=== PATIENT | male | born 1955 | race Caucasian/White ===

== ENCOUNTER 2020-06-14 07:24 | Day surgery (SDC) | payer BC ==
[2020-06-13 11:44] LABS: BASOPHILS # (AUTO) 0.1 X10'3 (0-0.2); EOSINOPHILS # (AUTO) 0.1 X10'3 (0-0.9); EOSINOPHILS % (AUTO) 1.1 % (0-6); HEMATOCRIT 42.4 % (42.0-52.0); HEMOGLOBIN 15.1 g/dl (14.0-17.9); LYMPHOCYTES # (AUTO) 1.8 X10'3 (1.1-4.8); LYMPHOCYTES % (AUTO) 32.8 % (21-51); MEAN CORPUSCULAR HEMOGLOBIN 31.8 PG (27.0-31.0); MEAN CORPUSCULAR HGB CONC 35.6 g/dL (33.0-36.5); MEAN CORPUSCULAR VOLUME 89.3 FL (78-98); MEAN PLATELET VOLUME 9.3 FL (7.4-10.4); MONOCYTES # (AUTO) 0.5 X10'3 (0-0.9); MONOCYTES % (AUTO) 8.2 % (2-12); NEUTROPHILS # (AUTO) 3.2 X10'3 (1.8-7.7); NEUTROPHILS % (AUTO) 56.9 % (42-75); PLATELET COUNT 179 X10'3 (140-440); RED BLOOD COUNT 4.75 X10'6 (4.70-6.10); WHITE BLOOD COUNT 5.6 X10'3 (4.5-11.0)
[2020-06-13 11:49] LABS: ALBUMIN 4.3 G/DL (3.4-5.0); ANION GAP 11 (8-16); BLOOD UREA NITROGEN 19 MG/DL (7-18); BUN/CREATININE RATIO 22.6 (5.4-32.0); CALCIUM 9.3 MG/DL (8.5-10.1); CHLORIDE 101 MMOL/L (99-107); CREATININE 0.84 MG/DL (0.60-1.10); GLUCOSE 137 MG/DL (70-104); POTASSIUM 3.4 MMOL/L (3.5-5.1); SODIUM 141 MMOL/L (135-145); TOTAL CARBON DIOXIDE 29.2 MMOL/L (24-32); eGFR > 90 ML/MIN
[2020-06-14] VITALS (11 sets, daily range): BP systolic 112–123; BP diastolic 65–74
[~2020-06-14] VITALS: Ht 185.4 cm; Wt 113.5 kg
[2020-06-14] MEDS ORDERED: amiodarone 150mg/dext, iso-os 100 ML IV ONE (07:50)
[2020-06-14] MEDS ORDERED: atropine 0.1mg/ml 10ml syringe IV ONE (07:50)
[2020-06-14] MEDS ORDERED: diphenhydrAMINE 25mg capsule PO ONE (07:50)
[2020-06-14] MEDS ORDERED: LORazepam 0.5 MG tablet PO ONE (07:50)
[2020-06-14] MEDS ORDERED: morphine 10mg/ml inj. IV ONE (07:50)
[2020-06-14] MEDS ORDERED: MIDAZolam 1mg/ml 10ml vial IV ONE (07:50)
[2020-06-14] MEDS ORDERED: OMEP40CA13 PO (08:24)
[2020-06-14] MEDS ORDERED: IRON1TAB24 (08:24)
[2020-06-14] MEDS ORDERED: Iron (08:24)
[2020-06-14] MEDS ORDERED: LORA10CA PO (08:24)
[2020-06-14] MEDS ORDERED: ATOR40TA PO (08:24)
[2020-06-14] MEDS ORDERED: HYDR50TA3 PO (08:24)
[2020-06-14] MEDS ORDERED: MULT-964 PO (08:24)
[2020-06-14] MEDS ORDERED: RIVA20TA PO (08:24)
[2020-06-14] MEDS ORDERED: METF500T PO (08:24)
[2020-06-14] MEDS ORDERED: SOTA80TA73 PO (08:26)
== END 2020-06-14 11:20 | disposition home or self-care (01) ==
LOC: SSTAY O 07:24
PROVIDERS: ATTEND Internal Medicine Cardiovascular Disease
DX: I48.19 Other persistent atrial fibrillation (principal); E78.5 Hyperlipidemia, unspecified; I10 Essential (primary) hypertension; D64.9 Anemia, unspecified; G47.30 Sleep apnea, unspecified; F17.290 Nicotine dependence, other tobacco product, uncomplicated; E66.9 Obesity, unspecified; Z68.35 Body mass index [BMI] 35.0-35.9, adult; Z79.899 Other long term (current) drug therapy; Z98.890 Other specified postprocedural states; Z80.1 Family history of malignant neoplasm of trachea, bronchus and lung; Z83.3 Family history of diabetes mellitus; Z82.49 Family history of ischemic heart disease and other diseases of the circulatory system
CPT/HCPCS: 36415; 80048; 85025; 92960; 93005; 94760; 94799; J2250; J2270; Q0163

== ENCOUNTER 2022-10-28 07:13 | Day surgery (SDC) | payer BC ==
[2022-10-27 13:02] LABS: BASOPHILS % (AUTO) 0.5 % (0-1); EOSINOPHILS # (AUTO) 0.1 X10'3 (0-0.9); EOSINOPHILS % (AUTO) 1.1 % (0-6); HEMATOCRIT 42.6 % (42.0-52.0); HEMOGLOBIN 14.5 g/dl (14.0-17.9); LYMPHOCYTES # (AUTO) 1.4 X10'3 (1.1-4.8); LYMPHOCYTES % (AUTO) 29.1 % (21-51); MEAN CORPUSCULAR HEMOGLOBIN 31.1 PG (27.0-31.0); MEAN CORPUSCULAR HGB CONC 34.1 g/dL (33.0-36.5); MEAN CORPUSCULAR VOLUME 91.4 FL (78-98); MONOCYTES # (AUTO) 0.5 X10'3 (0-0.9); NEUTROPHILS # (AUTO) 2.9 X10'3 (1.8-7.7); NEUTROPHILS % (AUTO) 59.3 % (42-75); PLATELET COUNT 157 X10'3 (140-440); RED BLOOD COUNT 4.66 X10'6 (4.70-6.10); RED CELL DISTRIBUTION WIDTH 13.9 % (11.5-14.5); WHITE BLOOD COUNT 4.8 X10'3 (4.5-11.0)
[2022-10-27 13:12] LABS: ALBUMIN 4.4 G/DL (3.4-5.0); ANION GAP 7 (8-16); BLOOD UREA NITROGEN 15 MG/DL (7-18); BUN/CREATININE RATIO 17.6 (5.4-32.0); CHLORIDE 105 MMOL/L (99-107); CREATININE 0.85 MG/DL (0.60-1.10); GLUCOSE 125 MG/DL (70-104); POTASSIUM 3.5 MMOL/L (3.5-5.1); SODIUM 144 MMOL/L (135-145); TOTAL CARBON DIOXIDE 31.6 MMOL/L (24-32); eGFR 90 ML/MIN
[2022-10-28] VITALS (8 sets, daily range): BP systolic 120–144; BP diastolic 74–96
[~2022-10-28] VITALS: Ht 180.3 cm; Wt 116.1 kg
[~2022-10-28 07:13] MED LIST: ATOR40TA PO; HYDR50TA4 PO; IRON1TAB24; Iron; LORA10CA PO; METF500T PO; MULT-964 PO; OMEP40CA21 PO; RIVA20TA PO; SOTA80TA73 PO
[2022-10-28] MEDS ORDERED: morphine 10mg/ml inj. IV ONE (07:25)
[2022-10-28] MEDS ORDERED: normal saline 1000ml 1,000 ML IV SCH (07:25)
[2022-10-28] MEDS ORDERED: amiodarone 150mg/dext, iso-os 100 ML IV ONE (07:25)
[2022-10-28] MEDS ORDERED: LORazepam 0.5 MG tablet PO ONE (07:25)
[2022-10-28] MEDS ORDERED: MIDAZolam 1mg/ml 10ml vial IV ONE (07:25)
[2022-10-28] MEDS ORDERED: diphenhydrAMINE 25mg capsule PO ONE (07:25)
[2022-10-28] MEDS ORDERED: atropine 0.1mg/ml 10ml syringe IV ONE (07:25)
[2022-10-28] MEDS ORDERED: GLUC100017 PO (07:43)
[2022-10-28] MEDS ORDERED: OMEP20CA16 PO (07:43)
[2022-10-28] MEDS ORDERED: ATOR40TA PO (07:43)
== END 2022-10-28 12:00 | disposition home or self-care (01) ==
LOC: SSTAY O 07:13
PROVIDERS: ATTEND Internal Medicine Cardiovascular Disease
DX: I48.0 Paroxysmal atrial fibrillation (principal); I10 Essential (primary) hypertension; E78.5 Hyperlipidemia, unspecified; G47.30 Sleep apnea, unspecified; E66.9 Obesity, unspecified; Z68.35 Body mass index [BMI] 35.0-35.9, adult; D64.9 Anemia, unspecified; Z79.899 Other long term (current) drug therapy; Z79.84 Long term (current) use of oral hypoglycemic drugs; Z98.890 Other specified postprocedural states; Z98.52 Vasectomy status; F17.290 Nicotine dependence, other tobacco product, uncomplicated; Z88.8 Allergy status to other drugs, medicaments and biological substances; Z83.3 Family history of diabetes mellitus; Z82.49 Family history of ischemic heart disease and other diseases of the circulatory system; Z80.1 Family history of malignant neoplasm of trachea, bronchus and lung
CPT/HCPCS: 36415; 80048; 82948; 85025; 85610; 92960; 93005; J2250; J2274; J7030; A4620

== ENCOUNTER 2023-09-25 11:59 | Day surgery (SDC) | payer BC ==
[2023-09-24 12:22] LABS: BASOPHILS % (AUTO) 0.5 % (0-1); EOSINOPHILS # (AUTO) 0.1 X10'3 (0-0.9); EOSINOPHILS % (AUTO) 1.8 % (0-6); HEMATOCRIT 43.3 % (42.0-52.0); LYMPHOCYTES # (AUTO) 1.5 X10'3 (1.1-4.8); LYMPHOCYTES % (AUTO) 22.3 % (21-51); MEAN CORPUSCULAR HEMOGLOBIN 31.6 PG (27.0-31.0); MEAN CORPUSCULAR HGB CONC 34.6 g/dL (33.0-36.5); MEAN CORPUSCULAR VOLUME 91.4 FL (78-98); MEAN PLATELET VOLUME 8.9 FL (7.4-10.4); MONOCYTES # (AUTO) 0.5 X10'3 (0-0.9); NEUTROPHILS # (AUTO) 4.4 X10'3 (1.8-7.7); NEUTROPHILS % (AUTO) 67.4 % (42-75); PLATELET COUNT 160 X10'3 (140-440); RED BLOOD COUNT 4.74 X10'6 (4.70-6.10); RED CELL DISTRIBUTION WIDTH 13.5 % (11.5-14.5); WHITE BLOOD COUNT 6.6 X10'3 (4.5-11.0)
[2023-09-24 12:27] LABS: ALBUMIN 4.2 G/DL (3.4-5.0); ANION GAP 7 (8-16); BLOOD UREA NITROGEN 20 MG/DL (7-18); BUN/CREATININE RATIO 21.5 (10.0-20.0); CALCIUM 9.4 MG/DL (8.5-10.1); CHLORIDE 104 MMOL/L (99-107); CREATININE 0.93 MG/DL (0.60-1.10); GLUCOSE 130 MG/DL (70-104); POTASSIUM 3.7 MMOL/L (3.5-5.1); SODIUM 143 MMOL/L (135-145); eGFR 81 ML/MIN
[2023-09-24 12:29] LABS: INR 1.2 INR
[2023-09-24 12:31] LABS: PROTHROMBIN TIME 13.2 SECONDS (9.0-12.0)
[2023-09-25] VITALS (11 sets, daily range): BP systolic 112–139; BP diastolic 60–86; PULSE 60–70; RESP 14–17; TEMP 98; O2SAT 94–99
[~2023-09-25] VITALS: Ht 180.3 cm; Wt 113.5 kg
[~2023-09-25 11:59] MED LIST changes: +GLUC100017 PO; -IRON1TAB24; -Iron; +OMEP20CA16 PO; -OMEP40CA21 PO
[2023-09-25] MEDS ORDERED: METO-384 PO (12:17)
[2023-09-25] MEDS ORDERED: FLEC100T PO (12:17)
[2023-09-25] MEDS ORDERED: normal saline 1000ml 1,000 ML IV SCH (12:20)
[2023-09-25] MEDS ORDERED: atropine 0.1mg/ml 10ml syringe IV ONE (12:20)
[2023-09-25] MEDS ORDERED: diphenhydrAMINE 25mg capsule PO ONE (12:20)
[2023-09-25] MEDS ORDERED: amiodarone 150mg/dext, iso-os 100 ML IV ONE (12:20)
[2023-09-25] MEDS ORDERED: LORazepam 0.5 MG tablet PO ONE (12:20)
[2023-09-25] MEDS: morphine 10mg/ml inj. IV ONE (13:39)
[2023-09-25] MEDS: MIDAZolam 1mg/ml 10ml vial IV ONE (13:39)
== END 2023-09-25 14:43 | disposition home or self-care (01) ==
LOC: SSTAY O 11:59
PROVIDERS: ATTEND Internal Medicine Cardiovascular Disease
DX: I48.0 Paroxysmal atrial fibrillation (principal); I10 Essential (primary) hypertension; E78.5 Hyperlipidemia, unspecified; E66.9 Obesity, unspecified; Z68.35 Body mass index [BMI] 35.0-35.9, adult; D64.9 Anemia, unspecified; R73.03 Prediabetes; G47.30 Sleep apnea, unspecified; I34.0 Nonrheumatic mitral (valve) insufficiency; Z79.84 Long term (current) use of oral hypoglycemic drugs; Z79.899 Other long term (current) drug therapy; Z98.890 Other specified postprocedural states; Z98.52 Vasectomy status; F17.290 Nicotine dependence, other tobacco product, uncomplicated; Z88.8 Allergy status to other drugs, medicaments and biological substances; Z79.01 Long term (current) use of anticoagulants; Z82.49 Family history of ischemic heart disease and other diseases of the circulatory system; Z80.9 Family history of malignant neoplasm, unspecified
CPT/HCPCS: 36415; 80048; 85025; 85610; 92960; 93005; J2250; J2274; J7030; A4620

== ENCOUNTER 2024-01-13 07:08 | Day surgery (SDC) | payer BC ==
[2024-01-12 14:33] LABS: BASOPHILS % (AUTO) 0.6 % (0-1); EOSINOPHILS % (AUTO) 0.7 % (0-6); HEMATOCRIT 40.5 % (42.0-52.0); HEMOGLOBIN 14.3 g/dl (14.0-17.9); LYMPHOCYTES # (AUTO) 1.5 X10'3 (1.1-4.8); LYMPHOCYTES % (AUTO) 27.3 % (21-51); MEAN CORPUSCULAR HEMOGLOBIN 31.6 PG (27.0-31.0); MEAN CORPUSCULAR HGB CONC 35.2 g/dL (33.0-36.5); MEAN CORPUSCULAR VOLUME 89.6 FL (78-98); MEAN PLATELET VOLUME 8.9 FL (7.4-10.4); MONOCYTES # (AUTO) 0.5 X10'3 (0-0.9); MONOCYTES % (AUTO) 10.1 % (2-12); NEUTROPHILS # (AUTO) 3.3 X10'3 (1.8-7.7); NEUTROPHILS % (AUTO) 61.3 % (42-75); PLATELET COUNT 162 X10'3 (140-440); RED BLOOD COUNT 4.52 X10'6 (4.70-6.10); WHITE BLOOD COUNT 5.4 X10'3 (4.5-11.0)
[2024-01-12 14:43] LABS: INR 1.3 INR; PROTHROMBIN TIME 13.5 SECONDS (9.0-12.0)
[2024-01-12 15:25] LABS: ALBUMIN 4.2 G/DL (3.4-5.0); ANION GAP 9 (8-16); BLOOD UREA NITROGEN 21 MG/DL (7-18); BUN/CREATININE RATIO 23.9 (10.0-20.0); CALCIUM 8.9 MG/DL (8.5-10.1); CHLORIDE 102 MMOL/L (99-107); CREATININE 0.88 MG/DL (0.60-1.10); GLUCOSE 115 MG/DL (70-104); POTASSIUM 3.5 MMOL/L (3.5-5.1); SODIUM 138 MMOL/L (135-145); eGFR 86 ML/MIN
[2024-01-13] VITALS (13 sets, daily range): BP systolic 104–134; BP diastolic 68–85; PULSE 49–72; RESP 12–19; TEMP 98.1; O2SAT 96–98
[~2024-01-13] VITALS: Ht 180.3 cm; Wt 114.9 kg
[~2024-01-13 07:08] MED LIST changes: +FLEC100T PO; +METO-384 PO; -MULT-964 PO; -SOTA80TA73 PO
[2024-01-13] MEDS ORDERED: LORazepam 0.5 MG tablet PO ONE (07:45)
[2024-01-13] MEDS ORDERED: amiodarone 150mg/dext, iso-os 100 ML IV ONE (07:45)
[2024-01-13] MEDS ORDERED: diphenhydrAMINE 25mg capsule PO ONE (07:45)
[2024-01-13 07:51] LABS: BASOPHILS % (AUTO) 0.7 % (0-1); EOSINOPHILS # (AUTO) 0.1 X10'3 (0-0.9); EOSINOPHILS % (AUTO) 1.7 % (0-6); HEMOGLOBIN 14.1 g/dl (14.0-17.9); LYMPHOCYTES # (AUTO) 1.1 X10'3 (1.1-4.8); MEAN CORPUSCULAR HEMOGLOBIN 31.8 PG (27.0-31.0); MEAN CORPUSCULAR HGB CONC 35.2 g/dL (33.0-36.5); MEAN CORPUSCULAR VOLUME 90.3 FL (78-98); MEAN PLATELET VOLUME 8.5 FL (7.4-10.4); MONOCYTES # (AUTO) 0.5 X10'3 (0-0.9); MONOCYTES % (AUTO) 10.9 % (2-12); NEUTROPHILS # (AUTO) 2.5 X10'3 (1.8-7.7); NEUTROPHILS % (AUTO) 59.7 % (42-75); PLATELET COUNT 147 X10'3 (140-440); RED BLOOD COUNT 4.43 X10'6 (4.70-6.10); RED CELL DISTRIBUTION WIDTH 14.3 % (11.5-14.5); WHITE BLOOD COUNT 4.1 X10'3 (4.5-11.0)
[2024-01-13 08:01] LABS: ANION GAP 7 (8-16); BLOOD UREA NITROGEN 19 MG/DL (7-18); BUN/CREATININE RATIO 20.7 (10.0-20.0); CALCIUM 8.7 MG/DL (8.5-10.1); CHLORIDE 103 MMOL/L (99-107); CREATININE 0.92 MG/DL (0.60-1.10); GLUCOSE 135 MG/DL (70-104); POTASSIUM 3.4 MMOL/L (3.5-5.1); SODIUM 139 MMOL/L (135-145); TOTAL CARBON DIOXIDE 28.6 MMOL/L (24-32); eCRCL 83 ML/MIN; eGFR 82 ML/MIN
[2024-01-13 08:02] LABS: INR 1.4 INR; PROTHROMBIN TIME 13.9 SECONDS (9.0-12.0)
[2024-01-13] MEDS ORDERED: atropine 0.1mg/ml 10ml syringe IV ONE (08:25)
[2024-01-13] MEDS: MIDAZolam 1mg/ml 10ml vial IV ONE (11:23)
[2024-01-13] MEDS: morphine 10mg/ml inj. IV ONE (11:24)
== END 2024-01-13 12:15 | disposition home or self-care (01) ==
LOC: SSTAY O 07:08
PROVIDERS: ATTEND Internal Medicine Cardiovascular Disease
DX: I48.0 Paroxysmal atrial fibrillation (principal); I48.92 Unspecified atrial flutter; I49.1 Atrial premature depolarization; I44.30 Unspecified atrioventricular block; I10 Essential (primary) hypertension; E78.5 Hyperlipidemia, unspecified; E66.9 Obesity, unspecified; I25.2 Old myocardial infarction; G47.30 Sleep apnea, unspecified; Z79.01 Long term (current) use of anticoagulants; Z79.84 Long term (current) use of oral hypoglycemic drugs; Z79.899 Other long term (current) drug therapy; Z98.52 Vasectomy status; Z98.890 Other specified postprocedural states; Z68.35 Body mass index [BMI] 35.0-35.9, adult; Z88.8 Allergy status to other drugs, medicaments and biological substances; Z80.1 Family history of malignant neoplasm of trachea, bronchus and lung; Z82.49 Family history of ischemic heart disease and other diseases of the circulatory system; Z83.3 Family history of diabetes mellitus
CPT/HCPCS: 36415; 80048; 85025; 85610; 92960; 93005; J2250; J2274; J7030